=== PATIENT | male | born 1990 | race Caucasian/White ===

== ENCOUNTER 2017-04-03 08:44 | Emergency (ER) | payer OTHER ==
[~2017-04-03] VITALS: Ht 170.2 cm; Wt 68.0 kg
[~2017-04-03 08:44] MED LIST: ATHLETIC FOOT C30 GM TP; CLEOCIN HCL300 MG PO; FLEXERIL PO; KEFLEX500 MG PO; MOBIC7.5 MG PO; NAPROSYN500 MG PO; NOHOMEMEDICATIONS; ROBAXIN 750 MG750 M1 PO; ULTRAM 50MG TAB50 MG PO
[2017-04-03 08:56] LABS: URINE BILIRUBIN NEGATIVE (Negative); URINE BLOOD NEGATIVE (Negative); URINE CLARITY SL CLOUDY; URINE COLOR YELLOW; URINE GLUCOSE-RANDOM NEGATIVE (Negative); URINE KETONES NEGATIVE (Negative); URINE LEUKOCYTES-REFLEX NEGATIVE (Negative); URINE NITRITE-REFLEX NEGATIVE (Negative); URINE PROTEIN NEGATIVE (Negative); URINE SPECIFIC GRAVITY 1.025 (1.005-1.030); URINE UROBILINOGEN 0.2 E.U./dl (0.2-1.0)
[2017-04-03 09:05] LABS: SQUAMOUS 0-3 Few /LPF (0-3); URINE WBC-REFLEX 0-5 Rare /HPF (0-5)
[2017-04-03 09:06] LABS: AMORPHOUS URATES Few /LPF (None Seen); BACTERIA-REFLEX 1-9 Few /HPF (None Seen); CASTS None Seen /LPF (None Seen); MUCUS 4-6 Moderate strn/LPF (None Seen); URINE RBC 0-2 Rare /HPF (0-2)
[2017-04-03] MEDS ORDERED: IBUPROFEN 800800 MG PO (09:45)
[2017-04-03 09:53] VITALS: BP 123/79
== END 2017-04-03 09:54 | disposition home or self-care (01) ==
LOC: M.ERS 08:44
PROVIDERS: Family Medicine
DX: R07.81 Pleurodynia (principal); F32.9 Major depressive disorder, single episode, unspecified; F17.210 Nicotine dependence, cigarettes, uncomplicated; F10.20 Alcohol dependence, uncomplicated

== ENCOUNTER 2021-03-13 17:45 | Emergency (ER) | payer OTHER ==
[~2021-03-13] VITALS: Ht 170.2 cm; Wt 63.5 kg
[~2021-03-13 17:45] MED LIST changes: +IBUPROFEN 800800 MG PO
[2021-03-13] MEDS ORDERED: CEPHALEXIN500 MG PO (18:45)
[2021-03-13 19:09] VITALS: BP 107/68
== END 2021-03-13 19:09 | disposition home or self-care (01) ==
LOC: M.ERS 17:45
DX: S61.216A Laceration without foreign body of right little finger without damage to nail, initial encounter (principal); F32.9 Major depressive disorder, single episode, unspecified; F17.210 Nicotine dependence, cigarettes, uncomplicated; X58.XXXA Exposure to other specified factors, initial encounter; Y93.89 Activity, other specified; Y92.89 Other specified places as the place of occurrence of the external cause; Y99.8 Other external cause status